=== PATIENT | female | born 1965 | race Caucasian/White ===

== ENCOUNTER 2018-01-20 06:44 | Emergency (ER) | payer MEDICAID ==
[~2018-01-20] VITALS: Ht 134.6 cm; Wt 60.0 kg
[~2018-01-20 06:44] MED LIST: AMLO5TAB88 PO; CARV6.2548 PO; FURO80TA87 PO; INSU100C3 SQ; LEVPEN SQ; METO5TAB69 PO; POTA8TAB4 PO; PROT40 PO; SIMV20TA6 PO; SITA25TA3 PO
[2018-01-20 10:52] VITALS: BP 158/72
== END 2018-01-20 11:00 | disposition home or self-care (01) ==
LOC: ER 06:44
DX: Z45.2 Encounter for adjustment and management of vascular access device (principal); I12.0 Hypertensive chronic kidney disease with stage 5 chronic kidney disease or end stage renal disease; N18.6 End stage renal disease
CPT/HCPCS: 99284; Z7610